=== PATIENT | male | born 1965 | race Caucasian/White ===

== ENCOUNTER 2025-07-23 09:45 | Emergency (ER) | payer SELFPAY ==
[~2025-07-23] VITALS: Ht 185.4 cm; Wt 80.0 kg
[2025-07-23 10:03] VITALS: O2SAT 99
[2025-07-23 10:34] LABS: HEMATOCRIT. 48.5 % (42.0-52.0); HEMOGLOBIN. 16.4 g/dL (14.0-18.0); MEAN PLATELET VOLUME 11.1 fl (7.4-10.4); PLATELET 173 x1000/uL (130-400); RED BLOOD CELL COUNT 5.55 mill/uL (4.7-6.1); RED CELL DISTRIBUTION WIDTH 14.6 % (11.6-14.6)
[2025-07-23 10:44] LABS: CLARITY URINE CLOUDY (CLEAR); COLOR URINE DARK YELLOW (YELLOW); GLUCOSE URINE NEGATIVE (NEGATIVE); KETONES URINE TRACE (NEGATIVE); LEUKOCYTE ESTERASE URINE 1+ (NEGATIVE); NITRITE URINE NEGATIVE (NEGATIVE); OCCULT BLOOD URINE 2+ (NEGATIVE); PH URINE 6.5 (4.5-8.0); PROTEIN URINE 4+ (NEGATIVE); SPECIFIC GRAVITY URINE 1.029 (1.005-1.030); UROBILINOGEN URINE 0.2 E.U./dL (0.2-1.0)
[2025-07-23 10:46] LABS: CREATININE 1.1 mg/dL (0.6-1.3); UREA NITROGEN BLOOD 12 mg/dL (9-23)
[2025-07-23 11:11] LABS: LYMPHOCYTES % MANUAL 2.0 % (20.0-50.0); MONOCYTES % MANUAL 5.0 % (2.0-8.0); NEUTROPHILS % MANUAL 93.0 % (45.0-75.0)
[2025-07-23 11:11] LABS: RBC URINE TNTC /hpf (0-2); WBC URINE 50-100 /hpf (0-2)
[2025-07-23 11:12] LABS: BACTERIA URINE 1+; SQUAMOUS EPITHELIAL CELL URINE RARE /lpf (RARE/1+); YEAST URINE NONE SEEN
[2025-07-23 11:12] LABS: PLATELET ESTIMATE NORMAL
[2025-07-23] MEDS: LEVOFLOXACIN 500MG PREMIX 100 ML IV SCH (11:21)
[2025-07-23] MEDS ORDERED: IOHEXOL-300 100 ML BOTTLE ONE (13:19)
[2025-07-23] MEDS ORDERED: LEVO-65 MT (15:26)
[2025-07-23 16:09] VITALS: BP 162/97; PULSE 99; RESP 20; TEMP 36.5; O2SAT 99
== END 2025-07-23 16:22 | disposition home or self-care (01) ==
LOC: ER 09:54
DX: N39.0 Urinary tract infection, site not specified (principal); I10 Essential (primary) hypertension
CPT/HCPCS: 80048; 81003; 85025; 87086; 87186; 87077; 36415; 74177; 96365; 99285; Q9967; J1956; Z7610